=== PATIENT | male | born 1980 | race Caucasian/White ===

== ENCOUNTER 2018-09-20 19:55 | Emergency (ER) | payer OTHER ==
[~2018-09-20] VITALS: Ht 167.6 cm; Wt 77.1 kg
== END 2018-09-20 21:43 | disposition home or self-care (01) ==
LOC: ER 19:55
DX: S80.01XA Contusion of right knee, initial encounter (principal); M25.561 Pain in right knee; W18.39XA Other fall on same level, initial encounter; Y93.89 Activity, other specified; Y92.098 Other place in other non-institutional residence as the place of occurrence of the external cause; Y99.8 Other external cause status